=== PATIENT | female | born 1970 | race Caucasian/White ===

== ENCOUNTER → 2021-04-22 | Outpatient (CLI) | payer BC ==
[2021-04-27 16:11] LABS: HPV 16 Negative (Negative); HPV 18 Negative (Negative); HPV OTHER HR TYPES Negative (Negative)
== END ==
LOC: LAB SHORT 07:15 → LAB 07:15
PROVIDERS: Internal Medicine
DX: Z12.4 Encounter for screening for malignant neoplasm of cervix (principal)
CPT/HCPCS: 87624; G0145

== ENCOUNTER 2023-07-30 07:46 | Day surgery (SDC) | payer OTHER ==
[~2023-07-30] VITALS: Ht 154.9 cm; Wt 52.1 kg
[2023-07-30] MEDS ORDERED: PROG100 (07:55)
[2023-07-30] MEDS ORDERED: CLIMARA1 EACH (07:56)
[2023-07-30 09:57] VITALS: BP 107/79
== END 2023-07-30 09:53 | disposition home or self-care (01) ==
LOC: ORSCSDS 07:46
PROVIDERS: Internal Medicine Gastroenterology
PROC: 0DBP8ZX Excision of Rectum, Via Natural or Artificial Opening Endoscopic, Diagnostic (ICD-10-PCS; principal; 2023-07-30 09:00)
DX: Z12.11 Encounter for screening for malignant neoplasm of colon (principal); Z86.010 Personal history of colon polyps; K57.30 Diverticulosis of large intestine without perforation or abscess without bleeding; Z79.899 Other long term (current) drug therapy
CPT/HCPCS: 88305; J2704; J7120